=== PATIENT | female | born 1970 | race Caucasian/White ===

== ENCOUNTER → 2024-05-28 16:11 | Outpatient (CLI) | payer OTHER, SELFPAY ==
[2024-05-28 17:13] LABS: Add Manual Diff / Slide Review NO; Basophils Absolute Auto 0 /uL (0-100); Basophils Percent Auto 0.9 % (0-2); Eosinophils Absolute Auto 100 /uL (0-450); Eosinophils Percent Auto 1.3 % (2-4); Hematocrit 39.5 % (36-46); Hemoglobin 13.7 g/dL (12.0-16.0); Lymphocytes Absolute Auto 1700 /uL (1100-4500); Lymphocytes Percent Auto 36.1 % (25-40); Mean Corpuscular HGB Conc 34.6 % (30-36); Mean Corpuscular Hemoglobin 31.9 PG (26-34); Mean Corpuscular Volume 92.1 fL (80-100); Monocytes Absolute Auto 300 /uL (0-900); Monocytes Percent Auto 5.9 % (3-14); Neutrophils Absolute Auto 2600 /uL (1500-7000); Neutrophils Percent Auto 55.8 % (50-75); Platelet Count 220 X10^3/uL (150-400); Red Blood Cell Count 4.29 X10^6/uL (4.0-5.2); Red Cell Distribution Width 12.5 % (11.6-14.8); White Blood Cell Count 4.7 X10^3/uL (4.5-11.0)
[2024-05-28 17:34] LABS: Alanine Aminotransferase 27 IU/L (<35); Albumin 5.3 g/dL (3.5-5.0); Albumin Globulin Ratio 1.9 (1.0-2.8); Alkaline Phosphatase 53 U/L (38-126); Amylase 55 U/L (30-110); Aspartate Aminotransferase 33 IU/L (14-36); BUN Creatinine Ratio 19.2 (6-22); Bilirubin Total 0.6 mg/dL (0.2-1.3); Blood Urea Nitrogen 14 mg/dL (7-17); Calcium 10.5 mg/dL (8.4-10.2); Carbon Dioxide 28 mmol/L (22-32); Chloride 101 mmol/L (98-107); Cholesterol 252 mg/dL (140-199); Estimated Glomerular Filt Rate > 60 mL/min (>60); Globulin 2.8 g/dL (1.7-4.1); Glucose 119 mg/dL (70-100); HDL Cholesterol 104 mg/dL (40-60); HEMOLYSIS < 15 (0-50); LDL Cholesterol Calculated 127 mg/dL (<100); Lipase 78 U/L (23-300); Sodium 141 mmol/L (137-145); Total Protein 8.1 g/dL (6.3-8.2); Triglycerides 103 mg/dL (35-150)
[2024-05-28 18:02] LABS: TSH w/ Reflex to FT4 1.78 uIU/mL (0.47-4.68)
[2024-05-29 15:36] LABS: Hepatitis B Surface Antigen NEGATIVE s/c (NEGATIVE)
[2024-05-29 15:46] LABS: HIV 1 & 2 Ab/Ag 4th Gen Combo NEGATIVE (NEGATIVE); Hep C Virus Ab w/Reflex Quant NEGATIVE s/c (NEGATIVE)
[2024-05-30 03:41] LABS: RPR Screen Non Reactive (Non Reactive)
== END ==
PROVIDERS: PCP Physician Assistant Medical; Referring Provider Physician Assistant Medical; Visit Provider Physician Assistant Medical
DX: R93.1 Abnormal findings on diagnostic imaging of heart and coronary circulation (principal); R10.9 Unspecified abdominal pain; R53.83 Other fatigue; R07.89 Other chest pain
CPT/HCPCS: 36415; 80053; 80061; 82150; 83690; 84443; 85025; 86592; 86803; 87340; 87389